=== PATIENT | female | born 1930 | race Caucasian/White ===

== ENCOUNTER → 2016-09-22 | Outpatient (CLI) | payer MEDICARE ==
[~2016-09-22] VITALS: Ht 162.6 cm; Wt 73.0 kg
[~2016-09-22] MED LIST: AMBIEN 10MG10 MG PO; AMBIEN 5MG TABLE5 MG PO; ASPI325T6 PO; ASPIRIN 81M81 MG/TA2 PO; B-12 500 MCG PO; CELEXA40 MG PO; DULCOLAX S10 MG/SUPP RC; FERROUS SU325 MG/TAB PO; FISH OIL1000 MG PO; FOLIC ACID800 MCG PO; FOSAMAX 70MG TA70 MG PO; FOSAMAX5 MG PO; LIPITOR 10MG10 MG PO; MILK OF MA400 MG/52 PO; MOBIC15 MG PO; MULTIPLE VITAMI1 CAP PO; MYLANTA 150 ML150 M1 PO; Miralax Packet PO; NEURONTIN100 MG/CAP PO; NEURONTIN300 MG/CAP PO; NORCO 325 MG-51 TAB PO; NORCO 325 MG-7.1 TAB PO; PERCOCET 325 MG1 TA2 PO; PLAVIX 75MG TAB75 MG PO; PRAVACHOL 40MG40 MG PO; PRILOSEC 20MG20 MG PO; TYLENOL 500MG500 MG PO; TYLENOL SU120 MG/SUP RC; ULTRAM 50MG TAB50 MG; ULTRAM 50MG TAB50 MG PO; Ultram PO; VITAMIN C500 MG PO; VITAMIN D 50,1.25 MG PO
[2016-09-22 06:38] VITALS: BP 160/84; PULSE 64
[2016-09-22 07:45] VITALS: BP 148/75; PULSE 81
[2016-09-22 07:52] VITALS: BP 164/73; PULSE 76
== END ==
LOC: COL.CARD 06:15
DX: R07.89 Other chest pain (principal)
CPT/HCPCS: A9502; J2785

== ENCOUNTER 2016-10-07 14:18 | Emergency (ER) | payer MEDICARE ==
[~2016-10-07] VITALS: Ht 162.6 cm; Wt 73.6 kg
[~2016-10-07 14:18] MED LIST changes: -MULTIPLE VITAMI1 CAP PO; -NORCO 325 MG-51 TAB PO
[2016-10-07 14:23] VITALS: TEMP 98
[2016-10-07] MEDS ORDERED: MULTIPLE VITAMI1 CAP PO (14:46)
[2016-10-07 16:05] LABS: HEMATOCRIT 39.1 % (37.0-47.0); HEMOGLOBIN 13.2 g/dl (12.5-16.0); MEAN CELL VOLUME 98 fl (80.0-100.0); MEAN CORPUSCULAR HEMOGLOBIN 33 pg (27.0-31.0); MEAN CORPUSCULAR HGB CONC 34 g/dl (33.0-37.0); MEAN PLATELET VOLUME 10.7 fl (7.4-10.4); PLATELET COUNT 267 K/mm3 (130-400); REDCELL DISTRIBUTION WIDTH-CV 12.3 % (11.5-14.5); WHITE BLOOD COUNT 8.4 K/mm3 (4.8-10.8)
[2016-10-07 16:13] LABS: CALCIUM 10.7 mg/dL (8.4-10.2); CREATININE, serum 0.77 mg/dL (0.52-1.25); POTASSIUM 4.4 mmol/L (3.4-5.0)
[2016-10-07] MEDS ORDERED: NORCO 325 MG-51 TAB PO (17:21)
[2016-10-07 18:00] VITALS: BP 152/73; PULSE 80
== END 2016-10-07 18:00 | disposition home or self-care (01) ==
LOC: COL.ER 14:18
PROVIDERS: Emergency Medicine
DX: S22.20XA Unspecified fracture of sternum, initial encounter for closed fracture (principal); S40.021A Contusion of right upper arm, initial encounter; W01.198A Fall on same level from slipping, tripping and stumbling with subsequent striking against other object, initial encounter; Y92.003 Bedroom of unspecified non-institutional (private) residence as the place of occurrence of the external cause; Z79.02 Long term (current) use of antithrombotics/antiplatelets
CPT/HCPCS: A9284; J2270; Q9967

== ENCOUNTER → 2017-11-07 | Outpatient (CLI) | payer MEDICARE ==
[~2017-11-07] MED LIST changes: +MULTIPLE VITAMI1 CAP PO; +NORCO 325 MG-51 TAB PO
== END ==
LOC: MC.RAD 13:40
DX: Z12.31 Encounter for screening mammogram for malignant neoplasm of breast (principal)

== ENCOUNTER → 2018-05-27 | Outpatient (CLI) | payer MEDICARE | LOC: COL.RAD 11:28 | DX: E21.3 Hyperparathyroidism, unspecified (principal) | CPT/HCPCS: A9500 ==

== ENCOUNTER → 2018-08-08 | Outpatient (REF) | LOC: ZMSC 16:25 | DX: Z01.89 Encounter for other specified special examinations (principal) ==

== ENCOUNTER 2018-10-09 13:02 | Emergency (ER) | payer MEDICARE ==
[~2018-10-09] VITALS: Ht 157.5 cm; Wt 64.5 kg
[2018-10-09] MEDS ORDERED: PREDNISONE20 MG PO (13:20)
[2018-10-09 13:51] LABS: BASO % 0.3 % (0.0-2.0); EOS # 0.3 (0.0-0.7); EOS % 2.9 % (0-4.0); GRAN # 6.8 (1.4-6.5); GRAN % 74.3 % (42.2-75.2); HEMATOCRIT 38.1 % (37.0-47.0); HEMOGLOBIN 13.3 g/dl (12.5-16.0); LYMPH # 1.3 (1.2-3.4); LYMPH % 14.4 % (20.0-51.0); MEAN CELL VOLUME 95 fl (80.0-100.0); MEAN CORPUSCULAR HEMOGLOBIN 33 pg (27.0-31.0); MEAN CORPUSCULAR HGB CONC 35 g/dl (33.0-37.0); MEAN PLATELET VOLUME 10.4 fl (7.4-10.4); MONO # 0.7 (0.1-0.6); MONO % 7.6 % (1.7-9.3); PLATELET COUNT 290 K/mm3 (130-400); REDCELL DISTRIBUTION WIDTH-CV 13.1 % (11.5-14.5)
[2018-10-09 13:59] LABS: BILIRUBIN,TOTAL 0.5 mg/dL (0.0-1.0); CALCIUM 9.4 mg/dL (8.4-10.2); CREATININE, serum 0.75 mg/dL (0.52-1.25); POTASSIUM 4.3 mmol/L (3.4-5.0); TOTAL PROTEIN 6.6 gm/dL (6.4-8.2)
[2018-10-09] MEDS ORDERED: ATIVAN 0.50.5 MG/TAB PO (14:02)
[2018-10-09] MEDS ORDERED: PROTONIX 40MG T40 MG PO (14:04)
[2018-10-09 14:05] LABS: COLLECTION METHOD CLEAN CATCH
[2018-10-09 14:13] LABS: PH 8 (5-8); SQUAMOUS EPITHELIAL None Seen /hpf; URINE APPEARANCE Clear; URINE BACTERIA None Seen /hpf; URINE BILIRUBIN Negative (NEGATIVE); URINE BLOOD Negative (NEGATIVE); URINE COLOR Straw; URINE GLUCOSE Negative (NEGATIVE); URINE KETONE Negative (NEGATIVE); URINE LEUKOCYTE ESTERASE Negative (NEGATIVE); URINE NITRATE Negative (NEGATIVE); URINE PROTEIN(semi-quant) Negative (NEGATIVE); URINE RBC 0-2 /hpf; URINE UROBILINOGEN Negative (NEGATIVE)
[2018-10-09 15:32] VITALS: BP 190/81; PULSE 64; TEMP 97.1
== END 2018-10-09 15:31 | disposition home or self-care (01) ==
LOC: COL.ER 13:02
PROVIDERS: Emergency Medicine
DX: F41.9 Anxiety disorder, unspecified (principal); T38.0X5A Adverse effect of glucocorticoids and synthetic analogues, initial encounter; I10 Essential (primary) hypertension; F32.9 Major depressive disorder, single episode, unspecified; E78.5 Hyperlipidemia, unspecified; Z79.891 Long term (current) use of opiate analgesic; Z79.02 Long term (current) use of antithrombotics/antiplatelets
CPT/HCPCS: J1885; J2060; J7030

== ENCOUNTER 2019-09-27 11:15 | Emergency (ER) | payer MEDICARE ==
[~2019-09-27] VITALS: Ht 157.5 cm; Wt 62.3 kg
[~2019-09-27 11:15] MED LIST changes: +ATIVAN 0.50.5 MG/TAB PO; +PREDNISONE20 MG PO; +PROTONIX 40MG T40 MG PO
[2019-09-27 11:19] VITALS: BP 111/58; TEMP 98
[2019-09-27 12:17] LABS: BASO # 0.1 (0.0-0.2); BASO % 0.8 % (0.0-2.0); EOS # 0.2 (0.0-0.7); EOS % 2.7 % (0-4.0); GRAN # 4.7 (1.4-6.5); GRAN % 71.6 % (42.2-75.2); HEMATOCRIT 37.5 % (37.0-47.0); HEMOGLOBIN 12.7 g/dl (12.5-16.0); LYMPH % 15.4 % (20.0-51.0); MEAN CELL VOLUME 96 fl (80.0-100.0); MEAN CORPUSCULAR HEMOGLOBIN 33 pg (27.0-31.0); MEAN CORPUSCULAR HGB CONC 34 g/dl (33.0-37.0); MEAN PLATELET VOLUME 10.5 fl (7.4-10.4); MONO # 0.6 (0.1-0.6); PLATELET COUNT 291 K/mm3 (130-400); RED BLOOD COUNT 3.89 M/mm3 (4.10-5.30); REDCELL DISTRIBUTION WIDTH-CV 13.2 % (11.5-14.5)
[2019-09-27 12:20] LABS: ALANINE AMINOTRANSFERASE 14 U/L (9-52); ALBUMIN 4.2 gm/dL (3.5-5.0); ALKALINE PHOSPHATASE 59 U/L (50-136); ANION GAP 9 mmol/L (7-16); AST,SGOT 31 U/L (15-37); BILIRUBIN,TOTAL 0.6 mg/dL (0.0-1.0); BLOOD UREA NITROGEN 19 mg/dL (7-17); CARBON DIOXIDE 23 mmol/L (22-30); CHLORIDE 101 mmol/L (98-107); CREATININE, serum 0.82 (0.52-1.25); GLUCOSE 110 mg/dL (74-106); POTASSIUM 4.9 mmol/L (3.4-5.0); SODIUM 132 mmol/L (137-145)
[2019-09-27 12:21] LABS: C-REACTIVE PROTEIN < 0.5 mg/dL (0.0-0.9)
[2019-09-27 13:01] LABS: COLLECTION METHOD CLEAN CATCH
[2019-09-27 13:19] LABS: MUCOUS Present /lpf; PH 5 (5-8); SQUAMOUS EPITHELIAL None Seen /hpf; URINE APPEARANCE Clear; URINE BACTERIA None Seen /hpf; URINE BILIRUBIN Negative (NEGATIVE); URINE BLOOD Negative (NEGATIVE); URINE COLOR Yellow; URINE GLUCOSE Negative (NEGATIVE); URINE KETONE Negative (NEGATIVE); URINE LEUKOCYTE ESTERASE Negative (NEGATIVE); URINE NITRATE Negative (NEGATIVE); URINE PROTEIN(semi-quant) Negative (NEGATIVE); URINE RBC 0-2 /hpf; URINE UROBILINOGEN Negative (NEGATIVE)
[2019-09-27 14:05] VITALS: PULSE 68
--- NOTE | 2019-09-27 15:43 | NUR ---
SW recieved consult for patient wanting to know information about assisted living. Patient reports that she has inquired in the past at [facility] and also attempted to get [place] home health for herself. Patient reports that she is getting weaker and can not cook herself meals. Dtr Harry Francois reports that she is unable to take care of her mother full term and she will need to go to a skilled nursing. Patient reports that she can not live on her own any longer. DTR also POA, is concerned with her safety at home. DTR reports that the patient is stubborn and is only admitting to needing help while in the hospital but will not allow others to help her. SW offered to place a consult with [facility] to give her updated options about care. Faxed referral
== END 2019-09-27 14:09 | disposition home or self-care (01) ==
LOC: COL.ER 11:15
PROVIDERS: Family Medicine
DX: F41.9 Anxiety disorder, unspecified (principal); R51 Headache; Z79.02 Long term (current) use of antithrombotics/antiplatelets; Z79.52 Long term (current) use of systemic steroids
CPT/HCPCS: J7030

== ENCOUNTER 2020-12-29 14:02 | Inpatient (IN) | payer MEDICARE ==
[2020-12-29] VITALS (105 sets, daily range): BP systolic 123–165; BP diastolic 71–92; PULSE 62–68; TEMP 98.5; O2SAT 93–99
[~2020-12-29] VITALS: Ht 157.5 cm; Wt 69.2 kg
[2020-12-29 14:49] LABS: BASO % 0.7 % (0.0-2.0); EOS # 0.2 (0.0-0.7); GRAN # 3.7 (1.4-6.5); GRAN % 64.4 % (42.2-75.2); HEMATOCRIT 35.7 % (37.0-47.0); HEMOGLOBIN 11.8 g/dl (12.5-16.0); LYMPH # 1.2 (1.2-3.4); LYMPH % 20.2 % (20.0-51.0); MEAN CELL VOLUME 96 fl (80.0-100.0); MEAN CORPUSCULAR HEMOGLOBIN 32 pg (27.0-31.0); MEAN CORPUSCULAR HGB CONC 33 g/dl (33.0-37.0); MEAN PLATELET VOLUME 10.5 fl (7.4-10.4); MONO # 0.7 (0.1-0.6); MONO % 11.5 % (1.7-9.3); PLATELET COUNT 267 K/mm3 (130-400); RED BLOOD COUNT 3.73 M/mm3 (4.10-5.30); REDCELL DISTRIBUTION WIDTH-CV 13.8 % (11.5-14.5)
[2020-12-29 15:07] LABS: ALANINE AMINOTRANSFERASE 13 U/L (4-34); ALBUMIN 3.8 gm/dL (3.5-5.0); ALKALINE PHOSPHATASE 81 U/L (50-136); ANION GAP 3 mmol/L (7-16); AST,SGOT 32 U/L (15-37); BILIRUBIN,TOTAL 0.3 mg/dL (0.0-1.0); BLOOD UREA NITROGEN 14 mg/dL (7-17); CALCIUM 8.7 mg/dL (8.4-10.2); CARBON DIOXIDE 25 mmol/L (22-30); CHLORIDE 100 mmol/L (98-107); CREATININE, serum 0.84 (0.52-1.25); GLUCOSE 88 mg/dL (74-106); POTASSIUM 4.3 mmol/L (3.4-5.0); SODIUM 127 mmol/L (137-145); TOTAL PROTEIN 6.7 gm/dL (6.4-8.2)
[2020-12-29 15:24] LABS: INR 0.9 (0.8-3.0); PROTHROMBIN TIME 10.3 SECONDS (9.7-12.8)
[2020-12-29 15:33] LABS: COLLECTION METHOD IN
[2020-12-29 15:57] LABS: PH 6 (5-8); SQUAMOUS EPITHELIAL None Seen /hpf; URINE APPEARANCE Clear; URINE BACTERIA None Seen /hpf; URINE BILIRUBIN Negative (NEGATIVE); URINE BLOOD Negative (NEGATIVE); URINE COLOR Yellow; URINE GLUCOSE Negative (NEGATIVE); URINE KETONE Negative (NEGATIVE); URINE LEUKOCYTE ESTERASE Negative (NEGATIVE); URINE NITRATE Negative (NEGATIVE); URINE PROTEIN(semi-quant) Negative (NEGATIVE); URINE RBC 0-2 /hpf; URINE UROBILINOGEN Negative (NEGATIVE)
[2020-12-29] MEDS ORDERED: NORVASC 10MG10 MG PO (17:13)
[2020-12-29] MEDS ORDERED: AMBIEN 10MG10 MG PO (17:13)
[2020-12-29] MEDS ORDERED: COZAAR 50MG50 MG/TAB PO (17:14)
[2020-12-29 17:57] LABS: TROPONIN-I < 0.012 ng/mL (0.000-0.035)
--- NOTE | 2020-12-29 18:14 | NUR ---
RECEIVED REPORT FROM CT RIOJAS IN ER. AWAITING ARRIVAL OF PT TO ICU 5.
--- NOTE | 2020-12-29 18:30 | NUR ---
PT ARRIVES VAI STRETCHER ON RA TO ICU 5. PT ASSISTED X1 TO ICU BED, GATI SLIGHTLY STUMBLY BUT ABLE TO CATCH SELF. PT ASSISTED WITH REPOSITIONING. PLACED ON BEDSIDE CONTINUOUS MONITOR. CALL LIGHT WITHIN REACH. VSS. SEE GTT FLOWSHEET. DAUGHTER AT BEDSIDE.
[2020-12-30] VITALS (317 sets, daily range): BP systolic 109–172; BP diastolic 57–93; PULSE 56–89; TEMP 97.5–98.7; O2SAT 52–100
[2020-12-30 05:56] LABS: HEMOGLOBIN 11.7 g/dl (12.5-16.0); MEAN CELL VOLUME 93 fl (80.0-100.0); MEAN CORPUSCULAR HEMOGLOBIN 32 pg (27.0-31.0); MEAN CORPUSCULAR HGB CONC 34 g/dl (33.0-37.0); MEAN PLATELET VOLUME 10.5 fl (7.4-10.4); PLATELET COUNT 267 K/mm3 (130-400); RED BLOOD COUNT 3.68 M/mm3 (4.10-5.30)
[2020-12-30 05:57] LABS: HEMATOCRIT 34.2 % (37.0-47.0)
[2020-12-30 06:07] LABS: CALCIUM 8.3 mg/dL (8.4-10.2); CHOLESTEROL RISK RATIO 2.3; CREATININE, serum 0.66 (0.52-1.25); POTASSIUM 4.3 mmol/L (3.4-5.0)
--- NOTE | 2020-12-30 07:00 | NUR ---
PT RESTING IN BED. VSS. WILL CONTINUE TO MONITOR.
--- NOTE | 2020-12-30 10:00 | NUR ---
Initial visit; Patient thanked Slope Runner for visit and keeping her in Slope Runner's prayers.
--- NOTE | 2020-12-30 11:30 | NUR ---
PT down to MRI
--- NOTE | 2020-12-30 15:54 | NUR ---
Proposal Coordinator met with the patient and the patient's daughter Harry to complete intake. The patient currently lives in [place] but will move to [facility] independent living in [facility] next week. The patient has a cane, walker and is usually independent with ADLs. The patient's PCP is Dr. Lopez and patient receives medications from [facility]. The plan is for the patient to go to post acute rehab and this SW presented Medicare.gov's list of post acute rehab. The first choice is [facility], second choice is [facility]. The patient was also agreeable to faxing referral to the SNF at [facility]. Referrals faxed and facilties notifed. POC for [facility] is Shannan #[phone] f# [phone]. Shannan with [facility] reports they can transport the patient at discharge if needed. *Discharge disposition at this time: Post acute rehab. Referrals out to [facility], [facility], and [facility]. Awaiting screens.
--- NOTE | 2020-12-30 16:42 | NUR ---
ATTEMPTED TO CALL REPORT. FITNESS PROFESSIONAL STATES RN IS BUSY, AND WILL CALL THIS RN BACK.
--- NOTE | 2020-12-30 17:07 | NUR ---
FABBY FOFANA CALLED THIS RN AND REPORT GIVEN. ALL QUESTIONS ANSWERED. PT FINISHING DINNER THEN WILL TRASPORT TO ROOM 327
--- NOTE | 2020-12-30 17:30 | NUR ---
PT TRANSFERED TO WHEELCHAIR AND TRANSPORTED TO [facility] WITH FAMILY AND BELONGINGS. FABBY FOFANA MEET AT ROOM/
--- NOTE | 2020-12-30 18:05 | NUR ---
Patient transferred to floor from ICU. She is alert and oriented. She walks with one assist, she is not steady with ambulation. Oriented patient to room. Assisted her to the bathroom. She denies pain and nausea. Family at bedside. No other changes at this time. Call light within reach.
--- NOTE | 2020-12-30 20:00 | NUR ---
Patient in bed resting. Alert and oriented x3. Assessment complete. Denies pain at this time. Denies further needs at this time.
[2020-12-31 03:01] VITALS: BP 169/74; PULSE 89; TEMP 98
--- NOTE | 2020-12-31 06:35 | NUR ---
Patient doing well throughout the night, up to restroom with x1 assist throughout the night. Denies pain at this time. Denies further needs at this time.
[2020-12-31 07:46] VITALS: BP 124/74; PULSE 69; TEMP 98.3
--- NOTE | 2020-12-31 08:50 | NUR ---
PATIENT DENYING COMPLAINTS OF PAIN THIS MORNING. PATIENT REPORTS EPISODE OF DI[facility]A THIS MORNING. MORNING MEDICATIONS ADMINISTERED. PHYSICAL THERAPY PRESENT IN ROOM TO WORK WITH PATIENT. NO OTHER NEEDS AT THIS TIME.
[2020-12-31 09:48] LABS: CALCIUM 8.5 mg/dL (8.4-10.2); CREATININE, serum 0.71 (0.52-1.25); POTASSIUM 4.1 mmol/L (3.4-5.0)
--- NOTE | 2020-12-31 10:00 | NUR ---
Era from [facility] reports they can accept at discharge as long as she has a skilled need when ready.
--- NOTE | 2020-12-31 10:09 | NUR ---
PATIENT SITTING UP IN BEDSIDE CHAIR AFTER SHOWERING WITH OCCUPATIONAL THERAPY THIS MORNING. SHIFT ASSESSMENT COMPLETED AT THIS TIME. CALL LIGHT WITHIN REACH. PATIENT DENIES ADDITIONAL NEEDS AT THIS TIME.
--- NOTE | 2020-12-31 10:10 | NUR ---
[place] SURVEILLANCE OPERATOR NOTIFIED THAT PATIENT, FAMILY AND REALTOR ARE READY FOR THE NOTARY.
[2020-12-31 11:27] VITALS: BP 120/61; PULSE 71; TEMP 97.7
[2020-12-31 16:14] VITALS: BP 127/70; PULSE 76; TEMP 98.6
--- NOTE | 2020-12-31 16:45 | NUR ---
Primary Care Sales Representative attended clinical rounds with the team. Kiki, [facility] Director advised that if [facility] can take skilled, this would likely be the best -fit so patient could transition from skilled to independent living. Patient, patient's daughter Natasha, and patient's granddaughter Ludmila (ph#[phone]) are all in agreement. LUIGI collaborated with Shannan at [facility] who advised the can accept patient tomorrow. The professional housing consultant patient access coordinator tomorrow is [facility] (ph#[phone]) and should be contacted once patient is on her way. Patient's family plans to transport her at discharge to [facility]. LUIGI collaborated with PURA Monreal who advised this would be appropriate. Discharge Plan: [facility] tomorrow
--- NOTE | 2020-12-31 18:00 | NUR ---
PATIENT SITTING UP IN BED EATING HER DINNER. PATIENT DENIES ANY NEEDS AT THIS TIME. CALL LIGHT WITHIN REACH. BED ALARM ON. NO OTHER NEEDS AT THIS TIME.
--- NOTE | 2020-12-31 19:17 | NUR ---
Awake, alert, oriented x 4, sitting up in bed, talkative, denies needs at this time, telemetry in use, updated on plan of care.
[2020-12-31 19:52] VITALS: BP 150/69; PULSE 73; TEMP 98.2
--- NOTE | 2020-12-31 22:08 | NUR ---
Assisted to restroom w/o issue, stand by assist required, ambulating with steady gait, bed alarm in use, fall precautions in use, call meyer w/i reach.
[2020-12-31 23:41] VITALS: BP 155/60; PULSE 62; TEMP 98.4
[2021-01-01 04:22] VITALS: BP 154/60; BP 177/67; PULSE 68; TEMP 97.7
[2021-01-01 07:43] VITALS: BP 163/72; PULSE 73; TEMP 98.1
--- NOTE | 2021-01-01 08:00 | NUR ---
Patient in bed, states she did not have a good night, concerened about discharge. SBA with walker to restroom. Assessment complete INT to right hand and left AC without complications. Patient denies pain at this time. Denies furhter needs at this time.
[2021-01-01] MEDS ORDERED: COZAAR100 MG PO ×2 (08:47→08:48)
[2021-01-01] MEDS ORDERED: MICROZIDE12.5 MG PO (08:47)
--- NOTE | 2021-01-01 09:02 | NUR ---
Dr. Costa in to see patient. PRN ativan given at this time. Patient anxious about going simeon.
[2021-01-01 10:45] VITALS: BP 102/48; BP 120/48
--- NOTE | 2021-01-01 10:50 | NUR ---
Contacted [facility], patient feeling better would like to discharge today. BP recheck at 120/48
[2021-01-01] MEDS ORDERED: ATIVAN 0.50.5 MG/TAB PO (11:20)
--- NOTE | 2021-01-01 11:48 | NUR ---
LUIGI notified of DC by Nurse. LUIGI faxed DC orders to SN[facility] @[phone], Notified Elliott nursing at [facility] . Nothing Follows. Family to transport. NF.
[2021-01-01 11:51] VITALS: BP 120/48; PULSE 73; TEMP 98.1
--- NOTE | 2021-01-01 13:00 | NUR ---
Patient sitting on the edge of bed, increased anxiety. Daughter at the bedside and ready to take the patient to nursing facility. CT Espinosa charge nurse and this nurse assisted patient into the wheelchair and nursing staff transfered the patient to the ER entrance. Discharge paperwork and personal belongings with the patient. No further needs expressed from the patient and family
== END 2021-01-01 13:00 | DRG 69 ==
LOC: COL.ER 14:02 → ICU 16:29 → SURG 12-30 17:46
PROVIDERS: Emergency Medicine; Physician Assistant; ADMIT Internal Medicine
PROC: 4A03X5D Measurement of Arterial Flow, Intracranial, External Approach (ICD-10-PCS; principal; 2020-12-30)
DX: G45.9 Transient cerebral ischemic attack, unspecified (principal); I16.1 Hypertensive emergency; E87.1 Hypo-osmolality and hyponatremia; Z96.651 Presence of right artificial knee joint; G47.00 Insomnia, unspecified; F41.9 Anxiety disorder, unspecified; F32.9 Major depressive disorder, single episode, unspecified; I10 Essential (primary) hypertension; M19.90 Unspecified osteoarthritis, unspecified site; Z20.822 Contact with and (suspected) exposure to COVID-19; G89.29 Other chronic pain; D32.9 Benign neoplasm of meninges, unspecified; Z90.710 Acquired absence of both cervix and uterus; Z86.718 Personal history of other venous thrombosis and embolism; Z90.49 Acquired absence of other specified parts of digestive tract; Z90.89 Acquired absence of other organs
CPT/HCPCS: 99223-AI; 99232-AI; 99239; A9585; J1650; J7050; Q9967